=== PATIENT | female | born 1930 | race Caucasian/White ===

== ENCOUNTER 2017-08-28 09:58 | Outpatient (CLI) | payer MEDICARE, OTHER ==
--- NOTE | 2017-08-28 14:04 | PRG ---
DATE OF SERVICE: 08/28/2017 HISTORY: Ms. Edie Avilez is a very pleasant 87-year-old accompanied by her caregiver, who presen ts to the [facility] for evaluation of a left ischial wound. Since the patient's last visit, Ms. Ken danielson has been receiving dressing changes of Multidex powder and gauze on a daily basis and as neede d after cleansing and irrigation by the patient's caregiver and home health. The patient's caregiver states that the tunnel associated with the wound appears to have increased in its length. Ms. Talisha flores has no complaints today. She denies any fever or chills. PHYSICAL EXAMINATION: VITAL SIGNS: Temperature 98.3, pulse 80, respirations 16, and blood pressure 121/71. EXTREMITIES: The wound of the left ischium measures approximately 3.0 x 2.0 cm. The dimensions of t he wound at the time of the patient's last visit were approximately 3.0 x 1.8 cm. A tunnel at the 12 o'clock position is present and is approximately 3 cm in length. The tunnel at the 12 o'clock posit ion associated with the wound was approximately 3 cm in length at the time of the patient's last visi t also. The wound is granulating. Nonviable tissue present within the wound margins was debrided wi th an excisional full-thickness debridement. Three samples of granulation tissue within the wound ma rgins were excised with the use of scissors and sent for aerobic, anaerobic, and fungal cultures. No purulent drainage is associated with the wound. No cellulitis of the left ischial region is appreci ated. No maceration of the skin of the periwound is noted. ASSESSMENT AND PLAN: 1. Left ischial wound subsequent to intraoperative debridement of a left ischial decubitus ulceratio n on 06/10/[address] Kieran Schaffer for treatment of left ischial osteomyelitis. Dressing changes of Multidex powder will be discontinued. Dressing changes of Hydrofera Blue will be initiated today. These dressing changes are to be performed on a daily basis and as needed after cleansing and irrig ation by home health and by the patient's caregiver, 4 x 4s and bordered gauze will be utilized as se condary dressings. Antibiotic therapy will be initiated based upon the results of the tissue culture s obtained today. The patient declines flap placement for treatment of her ischial wound. She also declines treatment with the wound VAC in conjunction with a biological. She continues also to declin e a trial of Maggot debridement therapy. The patient states that she prefers palliative care for her wound as opposed to attempts at healing of the wound, requiring the use of advanced modalities. Ms. Avilez states that she will contact the clinic in order to schedule her next clinic visit. 2. Paraplegia. 3. Neurogenic bladder.
[2017-08-29 12:15] LABS: Fungus Smear Status Final report (.)
== END 2017-08-28 09:59 | disposition home or self-care (01) ==
LOC: WCC 09:58
PROVIDERS: ATTEND Family Medicine
DX: T81.89XD Other complications of procedures, not elsewhere classified, subsequent encounter (principal); G82.20 Paraplegia, unspecified; N31.2 Flaccid neuropathic bladder, not elsewhere classified
CPT/HCPCS: 11042; 87070; 87077; 87186; 87205; 87206

== ENCOUNTER 2017-10-17 09:49 | Outpatient (CLI) | payer MEDICARE, OTHER ==
--- NOTE | 2017-10-17 13:18 | PRG ---
DATE OF SERVICE: 10/17/2017 HISTORY: Ms. Edie Avilez is a very pleasant 87-year-old accompanied by her caregiver who present s to the [facility] for evaluation of a left ischial wound. Since the patient's last visit, Ms. Kaushal martin has been receiving dressing changes of Hydrofera Blue and gauze on a daily basis and as needed after cleansing and irrigation by the patient's caregiver and home health. Ms. Avilez has no compla ints today. She denies any fever or chills. PHYSICAL EXAMINATION: VITAL SIGNS: Temperature 97.9, pulse 73, respirations 19, blood pressure 125/58. EXTREMITIES: The wound of the left ischium measures approximately 2.5 x 2.0 cm. The tunnel associat ed with the wound at the 12 o'clock position measures approximately 2.5 cm. The dimensions of the wo und at the time of the patient's visit on 08/28/2017 were approximately 3.0 x 2.0 cm. The tunnel at the 12 o'clock position at the time of the patient's visit on 08/28/2017 was approximately 3 cm in le ngth. The wound is granulating. Nonviable tissue present within the wound margins was debrided with an excisional full-thickness debridement. No purulent drainage is associated with the wound. No er ythema of the skin surrounding the wound is present. No maceration of the skin of the periwound is n oted. ASSESSMENT AND PLAN: 1. Left ischial wound subsequent to intraoperative debridement of a left ischial decubitus ulceratio n on 06/10/[address] Kieran Schaffer for treatment of left ischial osteomyelitis. Dressing changes of Hydrofera Blue will be continued on a daily basis and as needed after cleansing and irrigation by home health and the patient's caregiver, 4 x 4s will be utilized as a secondary dressing. Arrangemen ts will also be made for the home delivery of dressing supplies Ms. Avilez again states that she sandro l contact the clinic in order to schedule her next clinic appointment. 2. Paraplegia. 3. Neurogenic bladder.
[2017-10-18] MEDS ORDERED: Sodium Chloride 0.9% 15 ML NEB ONE (16:01)
== END 2017-10-17 09:50 | disposition home or self-care (01) ==
LOC: WCC 09:49
PROVIDERS: ATTEND Family Medicine
DX: T81.89XD Other complications of procedures, not elsewhere classified, subsequent encounter (principal); G82.20 Paraplegia, unspecified; N31.9 Neuromuscular dysfunction of bladder, unspecified
CPT/HCPCS: 11042

== ENCOUNTER 2017-11-28 10:12 | Outpatient (CLI) | payer MEDICARE, OTHER ==
--- NOTE | 2017-11-28 12:32 | PRG ---
DATE OF SERVICE: 11/28/2017 HISTORY: Ms. Lelo Avilez is a very pleasant 87-year-old accompanied by her caregiver, who presen ts to the [facility] for evaluation of a left ischial wound. Since the patient's last visit, Ms. Ken danielson has been receiving dressing changes of Hydrofera Blue on a daily basis and as needed after sundar ansing and irrigation by the patient's caregiver and Home Health. The patient reports a worsening in the appearance of her wound over the past week to 10 days. The patient has no other complaints toda y. She denies any fever or chills. PHYSICAL EXAMINATION: VITAL SIGNS: Temperature 98.6, pulse 70, respirations 18, and blood pressure 110/53. EXTREMITIES: The wound of the left ischium measures approximately 3.5 x 2.0 cm. The tunnel associat ed with the wound at the 12 o'clock position measures approximately 3 cm. The dimensions of the woun d at the time of the patient's last visit were approximately 2.5 x 2.0 cm. The tunnel associated wit h the wound at the 12 o'clock position was approximately 2.5 cm in length. The wound is granulating. Nonviable tissue present within the wound margins was debrided with an excisional full-thickness de bridement. Several samples of granulation tissue were excised with the use of scissors and sent for aerobic and anaerobic cultures. No purulent drainage is associated with the wound. No cellulitis of the left ischial region is appreciated. No maceration of the skin of the periwound is noted. ASSESSMENT AND PLAN: 1. The patient continues to decline flap placement by Plastic Surgery. 2. Left ischial wound subsequent to intraoperative debridement of a left ischial decubitus ulceratio n on 06/10/[address] Kieran Schaffer for treatment of left ischial osteomyelitis. Dressing changes of Hydrofera Blue will be continued on a daily basis and as needed after cleansing and irrigation by home health and by the patient's caregiver. The patient has been given a prescription for Bactrim DS #20 one p.o. b.i.d. x10 days. Antibiotic therapy will be modified based upon the results of the tis scar cultures obtained today. Ms. Avilez states she will contact the clinic in order to schedule her next clinic appointment. 3. Paraplegia. 4. Neurogenic bladder.
== END 2017-11-28 10:13 | disposition home or self-care (01) ==
LOC: WCC 10:12
PROVIDERS: ATTEND Family Medicine
DX: T81.89XD Other complications of procedures, not elsewhere classified, subsequent encounter (principal); G82.20 Paraplegia, unspecified; N31.9 Neuromuscular dysfunction of bladder, unspecified
CPT/HCPCS: 11042; 87070; 87077; 87186; 87205

== ENCOUNTER 2018-02-19 10:31 | Outpatient (CLI) | payer MEDICARE, OTHER ==
[~2018-02-19 10:31] MED LIST: Sodium Chloride 0.9% 15 ML NEB ONE
--- NOTE | 2018-02-19 12:58 | PRG ---
DATE OF SERVICE: 02/19/2018 HISTORY: Ms. Edie Avilez is a very pleasant 87-year-old accompanied by her caregiver who present s to the [facility] for evaluation of a left ischial wound. Since the patient's last visit, Ms. Kaushal martin has been receiving dressing changes of Hydrofera Blue on a daily basis and as needed after clif nsing and irrigation by the patient's caregiver and Home Health. The patient has no other complaints today. She denies any fever or chills. PHYSICAL EXAMINATION: VITAL SIGNS: Temperature 97.7, pulse 79, respirations 18, blood pressure 98/54. EXTREMITIES: The wound of the left ischium measures approximately 2.0 x 3.0 cm. A tunnel associated with the wound at the 12 o'clock position is approximately 2.5 cm in length. The dimensions of the wound at the time of the patient's last visit were approximately 3.5 x 2.0 cm. The tunnel associated with the wound at the 12 o'clock position was approximately 3 cm in length. The wound is granulatin g. Nonviable tissue present within the wound margins was debrided with an excisional full-thickness debridement. No purulent drainage is associated with the wound. No cellulitis of the left ischial r egion is appreciated. No maceration of the skin of the periwound is noted. ASSESSMENT AND PLAN: 1. Left ischial wound subsequent to intraoperative debridement of a left ischial decubitus ulceratio n on 06/10/[address] Kieran Schaffer for treatment of left ischial osteomyelitis. The patient larissa nues to decline flap placement by Plastic Surgery. Dressing changes of Hydrofera Blue followed by Me sarah gallo will be continued on a daily basis and as needed after cleansing and irrigation by home health and by the patient's caregiver. Alternatively, the patient may receive dressing changes of Mu ltidex powder and gauze also on a daily basis and as needed after cleansing and irrigation by home he alth and by the patient's caregiver. Ms. Avilez states she will contact the clinic in order to sche dule her next clinic appointment. 2. Paraplegia. 3. Neurogenic bladder.
== END 2018-02-19 10:32 | disposition home or self-care (01) ==
LOC: WCC 10:31
PROVIDERS: ATTEND Family Medicine
DX: T81.89XD Other complications of procedures, not elsewhere classified, subsequent encounter (principal); G82.20 Paraplegia, unspecified; N31.9 Neuromuscular dysfunction of bladder, unspecified

== ENCOUNTER 2018-07-02 11:04 | Outpatient (CLI) | payer MEDICARE, OTHER ==
--- NOTE | 2018-07-02 12:31 | PRG ---
DATE OF SERVICE: 07/02/2018 HISTORY: Ms. Edie Avilez is a very pleasant 87-year-old, accompanied by her caregiver, who prese nts to the [facility] for evaluation of a left ischial wound. Since the patient's last visit, Ms. Avilez has been receiving dressing changes of Hydrofera Blue or alternatively Multidex powder on a d aily basis and as needed after cleansing and irrigation by the patient's caregiver and home health. Ms. Avilez has no other complaints today. She denies any fever or chills. PHYSICAL EXAMINATION: VITAL SIGNS: Temperature 97.7, pulse 66, respirations 19, blood pressure 129/82. EXTREMITIES: The wound of the left ischium measures approximately 3.0 x 1.5 cm. A tunnel associated with the wound at the 12 o'clock position is approximately 2 cm in length. The dimensions of the wo und at the time of the patient's last visit were approximately 3.0 x 2.0 cm. The tunnel associated w ith the wound at the 12 o'clock position was approximately 2.5 cm in length. The wound is granulatin g. Nonviable tissue present within the wound margins was debrided with an excisional full-thickness debridement with the use of a curette. No purulent drainage is associated with the wound. No cellul itis of the left ischial region is appreciated. No maceration of the skin of the periwound is noted. ASSESSMENT AND PLAN: 1. Left ischial wound subsequent to intraoperative debridement of a left ischial decubitus ulceratio n on 06/10/[address] Kieran Schaffer for treatment of left ischial osteomyelitis. Dressing changes of Hydrofera Blue followed by Mepilex border will be continued on a daily basis and as needed after c leansing and irrigation by home health and by the patient's caregiver. Alternatively, the patient ma y receive dressing changes of Multidex powder and gauze also on a daily basis and as needed after sundar ansing and irrigation by home health and by the patient's caregiver. Ms. Avilez again states she wi ll contact the clinic in order to schedule her next clinic appointment. 2. Paraplegia. 3. Neurogenic bladder.
[2018-07-02] MEDS ORDERED: Sodium Chloride 0.9% 15 ML NEB ONE (15:00)
== END 2018-07-02 11:05 | disposition home or self-care (01) ==
LOC: WCC 11:04
PROVIDERS: ATTEND Family Medicine
DX: T81.89XD Other complications of procedures, not elsewhere classified, subsequent encounter (principal); G82.20 Paraplegia, unspecified; N31.9 Neuromuscular dysfunction of bladder, unspecified
CPT/HCPCS: 11042; A4218